=== PATIENT | female | born 1990 | race African-American/Black ===

== ENCOUNTER 2025-08-21 09:07 | Emergency (ER) | payer SELFPAY ==
[~2025-08-21] VITALS: Ht 152.4 cm; Wt 57.0 kg
[2025-08-21 09:25] VITALS: O2SAT 99
[2025-08-21] MEDS ORDERED: IBUP-1455 MT (11:03)
[2025-08-21] MEDS ORDERED: ACET-2708 MT (11:03)
[2025-08-21] MEDS ORDERED: AMOX1TAB16 MT (11:03)
[2025-08-21 11:30] VITALS: TEMP 36.6; O2SAT 99
[2025-08-21 11:32] VITALS: BP 158/104; PULSE 106; RESP 16
[2025-08-21] MEDS: HYDROCODONE/ACETAMINOPHEN 5/325MG TABLET PO ONE (11:32)
[2025-08-21] MEDS: KETOROLAC 15MG/ML VIAL IM ONE (11:32)
== END 2025-08-21 11:53 | disposition home or self-care (01) ==
LOC: ER 09:07
DX: K04.7 Periapical abscess without sinus (principal)
CPT/HCPCS: 96372; 99283; J1885; Z7610